=== PATIENT | male | born 1955 | race Caucasian/White ===

== ENCOUNTER 2023-01-29 13:28 | Outpatient (CLI) | payer MEDICARE, OTHER, SELFPAY ==
--- NOTE | ~2023-01-29 | PE_ITS ---
EXAMINATION: PET_PETPSMAST_PT DATE: 01/29/2023 16:03 INDICATION: Malignant neoplasm of prostate. TECHNIQUE: 8.553 mCi of piflufolastat F-18 was administered intravenously. Low dose computed tomograp hy (CT) images were acquired from the base of the brain to the proximal thighs for attenuation correc tion and anatomic localization. Automated exposure control was employed. Dose-length product (DLP) wa s 1247 mGy-cm. Positron emission tomography (PET) images were acquired in the same distribution. COMPARISON: None FINDINGS: Head/neck: There are no pathologically enlarged lymph nodes. Chest: The lungs demonstrate mild atelectasis. Calcified left hilar and mediastinal lymph nodes are c onsistent with old granulomatous disease. No pleural effusion. Cardiomegaly is noted. There are coron janet artery calcifications. There are calcifications of aortic valve. No pericardial effusion. There i s mild bilateral gynecomastia. Abdomen/pelvis/proximal thighs: The liver, gallbladder, pancreas, and adrenal glands are normal. Calc ifications in the spleen are consistent with old granulomatous disease. There is a 5 mm stone in righ t kidney. Left kidney is normal. The prostate is mildly enlarged. There is increased activity involvi ng the majority of the prostate with extension into right seminal vesicle with maximum SUV of 45.6. T here are no dilated loops of bowel. The appendix is normal. There is a 10 x 14 mm left common iliac l ymph node without increased activity. There is prominent fat in left inguinal canal that may be a her gita. There is a 12 x 12 mm aortocaval lymph node without increased activity. There is increased acti vity in normal-sized bilateral external iliac lymph nodes in a normal-sized right internal iliac lymp h node. For example, a 7 x 6 mm right internal iliac node demonstrates maximum SUV of 44.7. There is focal increased activity in posterior left ilium with maximum SUV of 52.4. There are changes of anter ior and posterior fusion procedures from L3 to L5. There is focal increased activity in anterior L1 v ertebral body with maximum SUV of 26.[address] correlate. IMPRESSION: 1. Mildly enlarged prostate with increased activity involving the majority of the prostate with exten swapna to right seminal vesicle, consistent with primary malignancy. 2. Increased activity in normal-sized bilateral external iliac nodes and a right internal iliac node, consistent with metastatic disease. 3. Focal increased activity in L1 vertebral body and left ilium without abnormal CT correlate, consis tent with metastatic disease. Reviewed, dictated and finalized at location A. IMPRESSION: 1. Mildly enlarged prostate with increased activity involving the majority of t he prostate with extension to right seminal vesicle, consistent with primary ma lignancy. 2. Increased activity in normal-sized bilateral external iliac nodes and a righ t internal iliac node, consistent with metastatic disease. 3. Focal increased activity in L1 vertebral body and left ilium without abnorma l CT correlate, consistent with metastatic disease.
== END 2023-01-29 13:29 | disposition home or self-care (01) ==
PROVIDERS: PCP Family Medicine; Visit Provider Urology
DX: C61 Malignant neoplasm of prostate (principal); N40.0 Benign prostatic hyperplasia without lower urinary tract symptoms
CPT/HCPCS: 78815; A9595